=== PATIENT | female | born 1985 | race Native Hawaiian/Other Pacific Islander ===

== ENCOUNTER → 2016-10-04 | Outpatient (CLI) | payer OTHER | END | disposition home or self-care (01) | LOC: LABWHC1 12:22 | PROVIDERS: ATTEND Anesthesiology | DX: M06.9 Rheumatoid arthritis, unspecified (principal) | CPT/HCPCS: 36415; 86038; 86431 ==

== ENCOUNTER → 2016-10-04 | Outpatient (CLI) | payer OTHER ==
[2016-10-04 11:47] VITALS: BP 121/78; PULSE 71; RESP 18; TEMP 98.6
--- NOTE | 2016-10-04 12:13 | P.HPIM ---
History of Present Illness H&P Date: 10/04/16 Chief Complaint: widespread joint pain, neck pain, knee pain This is a 31-year-old patient referred by Dr. Dougherty for chronic pain in most joints, neck, and bilateral knees, with numbness/tingling to RUE. Patient has been taking medications from primary care physician including tramadol medications with some relief and also uses cannabinoid oil. She has been previously diagnosed with rheumatoid arthritis but has not been treated for this. Patient denies adverse drug effects from medications. Patient also denies new-onset weakness, bowel/bladder incontinence, or any other signs or symptoms of cauda equina syndrome. There are no signs of acute intoxication, and no indications of medication diversion or overuse. Patient notes that pain worsens significantly with standing and walking and improves with rest, ice, oils, and medication. Patient has used several types of medications for pain, including NSAIDS, OPIOIDS, TRAMADOL, and THC. Patient HAS NOT had surgery. Patient HAS had injections previously by Dr. David with 1-2 weeks' relief from each in her knees and epidural injections in her neck. Patient HAS NOT had physical therapy recently. In addition to above, 13-point review of systems is also negative for chest pain , shortness of breath, changes in vision, changes in hearing, new onset weakness , abdominal pain, diarrhea, extreme fatigue, malaise, fever, skin changes, homicidal or suicidal ideation, or bowel or bladder incontinence. 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 Neuro: CN II-XII grossly intact, muscle strength lower extremities PRESERVED Assessment: 1. rheumatoid arthritis 2. cervical spondylosis 3. chronic pain syndrome Plan: 1. Explanation: Opioid and psychological risk scores were reviewed. Diagnoses , prognoses, and multiple treatment options including but not limited to physical therapy, interventional therapies, adjuvant medical therapies, narcotic medication therapies, and surgery were discussed with the patient and all questions were answered to the patient's satisfaction. 2. Opioid agreement: no opioids prescribed today 3. Counseling: The patient was counseled extensively on SMOKING CESSATION, BODY MASS INDEX, EXERCISE. Specifically, the patient was instructed regarding the importance of smoking cessation, weight control, and exercise in the context of both chronic pain and overall health. 4. Procedures: none for now 5. Consultations: Dr. Joseph, rheumatology for RA treatment 6. Investigations: serum FARHANA, rheumatoid factor 7. Medications: none 8. Disposition: f/u as needed. Patient to see sagger soak and f/u for further evaluation after if pain does not improve. PQRS measures: 1-Patient's medications are documented in the chart. 2-Tobacco use is positive, counseling given 3-Patient has not had a pneumococcal vaccine. 4-Advanced care planning discussed, patient unable to give. 5-Opioid contract NOT signed with the patient. 6-Pain positive, follow-up visit or procedure NOT scheduled for now; patient to f/u as needed 7-Patient's blood pressure measured and documented, and WNL. 8-Patient's weight was measured, and body mass index within the normal limits 9-Patient WAS NOT identified as an unhealthy alcohol user. Past Medical History Past Medical History: Fibromyalgia, Rheumatoid Arthritis (RA) Additional Past Medical History / Comment(s): DDD, migraines History of Any Multi-Drug Resistant Organisms: None Reported Past Surgical History: Section, Cholecystectomy, Tubal Ligation Additional Past Surgical History / Comment(s): D&C, Past Anesthesia/Blood Transfusion Reactions: Blood Transfusion Reaction Additional Past Anesthesia/Blood Transfusion Reaction / Comment(s): rash with blood product Smoking Status: Current every day smoker - Past Family History Father Additional Family Medical History / Comment(s): migraines Mother Additional Family Medical History / Comment(s): scoliosis Medications and Allergies Home Medications Medication Instructions Recorded Confirmed Type Baclofen 1 tab PO BID 10/04/16 10/04/16 History Ibuprofen [Motrin] 1 tab PO BID PRN 10/04/16 10/04/16 History Rizatriptan Benzoate [Rizatriptan] 1 tab PO BID 10/04/16 10/04/16 History traMADol HCL [Ultram] 1 tab PO Q6HR PRN 10/04/16 10/04/16 History Allergies Allergy/AdvReac Type Severity Reaction Status Date / Time No Known Allergies Allergy Verified 10/04/16 11:35 Physical Exam Vitals: Vital Signs Temp Pulse Resp BP Pulse Ox 10/04/16 11:41 98.6 F 71 18 121/78 99 Intake and Output 10/03/16 10/04/16 10/04/16 22:59 06:59 14:59 Other: Weight 48.534 kg Patient Weight 10/05/16 06:59 Weight 48.534 kg
== END ==
LOC: PNWHC3 11:02
PROVIDERS: ATTEND Anesthesiology
DX: M47.812 Spondylosis without myelopathy or radiculopathy, cervical region (principal); M06.9 Rheumatoid arthritis, unspecified; Z79.891 Long term (current) use of opiate analgesic; Z79.899 Other long term (current) drug therapy
CPT/HCPCS: 99211

== ENCOUNTER 2017-05-25 13:38 | Emergency (ER) | payer MEDICARE, OTHER ==
[2017-05-25 13:50] VITALS: RESP 18
[2017-05-25] MEDS ORDERED: DEXAMETHASONE SOD PHOSPHATE 10 MG/ML 1 ML VIAL IV STA (15:57)
[2017-05-25] MEDS ORDERED: METOCLOPRAMIDE 5 MG/ML 2 ML VIAL IVP STA (15:57)
[2017-05-25] MEDS ORDERED: KETOROLAC 30 MG/ML 1 ML VIAL IVP STA (15:57)
[2017-05-25] MEDS ORDERED: SODIUM CHLORIDE 0.9% 1,000 ML IV STA (15:57)
[2017-05-25] MEDS ORDERED: diphenhydrAMINE 50 MG/ML 1 ML VIAL IVP STA (15:57)
--- NOTE | 2017-05-25 16:05 | ED ---
General Adult HPI - General Chief complaint: Headache Stated complaint: Migraine Time Seen by Provider: 05/25/17 15:46 Source: patient, RN notes reviewed Mode of arrival: ambulatory Limitations: no limitations - History of Present Illness Initial comments: Patient 31-year-old female significant past medical history for migraines, who presents emergency room today with a chief complaint of a migraine headache that began 2 weeks ago. She doesn't that she was at [facility] one week ago for this migraine headache given shots there and discharged home. She states she saw her family doctor yesterday for this headache as well. She states she's been advised to follow-up with neurology. She states that she was told about injections possible. She states she's been having some neck pain that started 2 weeks ago with this migraine. She states that it is worse on the right side and worse when she rotates her head to that direction. Patient states she's tried her Imitrex and Fioricet at home with no relief. She states that she's noticed some blurry vision out of the right eye also photosensitivity. Also admits to feeling nauseated. She states all the symptoms are consistent with migraine headaches that she's had before in the past but she does admit that since is more intense. Patient denies any new or different symptoms today for this migraine headache. Patient denies any recent fever, chills, shortness of breath, chest pain, back pain, abdominal pain, vomiting, numbness or tingling, dysuria or hematuria, constipation or diarrhea, or any other complaints. - Related Data Home Medications Medication Instructions Recorded Confirmed Butalb/Acetaminophen/Caffeine 1 cap PO Q4HR PRN 05/25/17 05/25/17 [Fioricet 50-300-40 mg Capsule] DULoxetine HCL [Cymbalta] 30 mg PO DAILY 05/25/17 05/25/17 HYDROcodone/APAP 5-325MG [[place] 1 tab PO Q6HR PRN 05/25/17 05/25/17 5-325] Mirtazapine [Remeron] 7.5 mg PO HS 05/25/17 05/25/17 Ondansetron HCl [Zofran] 4 mg PO Q6H PRN 05/25/17 05/25/17 SUMAtriptan SUCCINATE [Imitrex] 50 mg PO DAILY PRN 05/25/17 05/25/17 methylPREDNISolone [Medrol Dose See Taper PO DIRECTED 05/25/17 05/25/17 Pack] Previous Rx's Medication Instructions Recorded Cyclobenzaprine [Flexeril] 10 mg PO TID #20 tab 05/25/17 Allergies Allergy/AdvReac Type Severity Reaction Status Date / Time No Known Allergies Allergy Verified 05/25/17 15:46 Review of Systems ROS Statement: Those systems with pertinent positive or pertinent negative responses have been documented in the HPI. ROS Other: All systems not noted in ROS Statement are negative. Past Medical History Past Medical History: Fibromyalgia, Rheumatoid Arthritis (RA) Additional Past Medical History / Comment(s): DDD, migraines History of Any Multi-Drug Resistant Organisms: None Reported Past Surgical History: Section, Cholecystectomy, Tubal Ligation Additional Past Surgical History / Comment(s): D&C, Past Anesthesia/Blood Transfusion Reactions: Blood Transfusion Reaction Additional Past Anesthesia/Blood Transfusion Reaction / Comment(s): rash with blood product Past Psychological History: No Psychological Hx Reported Smoking Status: Current every day smoker Past Alcohol Use History: None Reported Past Drug Use History: None Reported - Past Family History Father Additional Family Medical History / Comment(s): migraines Mother Additional Family Medical History / Comment(s): scoliosis General Exam - General Exam Comments Initial Comments: General: The patient is awake and alert, in no distress, and does not appear acutely ill. Eye: Pupils are equal, round and reactive to light, extra-ocular movements are intact. No nystagmus. There is normal conjunctiva bilaterally. No signs of icterus. Ears, nose, mouth and throat: There are moist mucous membranes and no oral lesions. Neck: The neck is supple, there is no tenderness or JVD. Cardiovascular: There is a regular rate and rhythm. No murmur, rub or gallop is appreciated. Respiratory: Lungs are clear to auscultation, respirations are non-labored, breath sounds are equal. No wheezes, stridor, rales, or rhonchi. Musculoskeletal: Normal ROM, no tenderness. Strength 5/5. Sensation intact. Pulses equal bilaterally 2+. Neurological: A&O x 3. CN II-XII intact, There are no obvious motor or sensory deficits. Coordination appears grossly intact. Speech is normal. Skin: Skin is warm and dry and no rashes or lesions are noted. Psychiatric: Cooperative, appropriate mood & affect, normal judgment. Limitations: no limitations Course Vital Signs 05/25/17 05/25/17 13:47 16:23 Temperature 97.9 F Pulse Rate 88 69 Respiratory 18 18 Rate Blood Pressure 150/95 124/67 O2 Sat by Pulse 100 99 Oximetry Medical Decision Making - Medical Decision Making Patient reexamined at this time shows no signs of distress. She states she's feeling much better. She was given doses of Reglan, Benadryl, Toradol, dexamethasone. Emergency room along with a liter bolus. Patient does admit to improvement feeling better will be discharged home. Patient also has symptoms of torticollis to the right side of the neck. Will be given a muscle laxer go home with. Patient is advised follow-up the family doctor return here to the emergency room symptoms increase worsen. Disposition Clinical Impression: Migraine Disposition: HOME SELF-CARE Condition: Good Instructions: Migraine Headache (ED) Additional Instructions: Please use medication as discussed. Please follow-up with family doctor in the next 2 days of symptoms have not improved. Please return to emergency room if the symptoms increase or worsen or for any other concerns. Prescriptions: Cyclobenzaprine [Flexeril] 10 mg PO TID #20 tab Referrals: Foster Dougherty MD [Primary Care Provider] - 1-2 days Time of Disposition: 17:23
[2017-05-25 17:38] VITALS: BP 115/55; PULSE 66; TEMP 98.3
== END 2017-05-25 17:36 | disposition home or self-care (01) ==
LOC: EC 13:38
DX: G43.909 Migraine, unspecified, not intractable, without status migrainosus (principal); M54.2 Cervicalgia; M06.9 Rheumatoid arthritis, unspecified; F17.200 Nicotine dependence, unspecified, uncomplicated; Z79.52 Long term (current) use of systemic steroids; Z79.899 Other long term (current) drug therapy; Z87.39 Personal history of other diseases of the musculoskeletal system and connective tissue; Z82.0 Family history of epilepsy and other diseases of the nervous system
CPT/HCPCS: 99283; 96374; 96375 ×3; 96361; J1200; J1100; J2765; J1885

== ENCOUNTER → 2017-09-07 | Outpatient (CLI) | payer MEDICARE, OTHER ==
--- NOTE | 2017-09-09 08:15 | MR ---
EXAMINATION TYPE: MR lumbar spine wo con DATE OF EXAM: 09/07/2017 COMPARISON: NONE HISTORY: Low back pain TECHNIQUE: T1 and T2 axial and sagittal images of the lumbar spine are submitted. FINDINGS: There is no abnormal signal seen within the visualized spinal cord or paraspinal soft tissu es. There is a subtle curvature of the spine. At L1-2 there is no degenerative disc disease, disc herniation, canal stenosis, or foraminal encroach ment. At L2-3 there is no degenerative disc disease, disc herniation, canal stenosis, or foraminal encroach ment At L3-4 there is no degenerative disc disease, disc herniation, canal stenosis, or foraminal encroach ment At L4-5 there is no degenerative disc disease, disc herniation, canal stenosis, or foraminal encroach ment At L5-S1 there is disc desiccation and annular tear with broad-based central disc protrusion and mild effacement of thecal sac. No canal stenosis or foraminal encroachment. IMPRESSION: 1. At L5-S1 there is disc desiccation and annular tear with broad-based central disc protrusion and m ild effacement of thecal sac. No canal stenosis or foraminal encroachment.
== END | disposition home or self-care (01) ==
LOC: RADMRIMAIN 19:53
PROVIDERS: ATTEND Nurse Practitioner
DX: M51.27 Other intervertebral disc displacement, lumbosacral region (principal)
CPT/HCPCS: 72148

== ENCOUNTER 2019-02-07 13:55 | Emergency (ER) | payer MEDICARE, OTHER ==
[2019-02-07 14:01] VITALS: TEMP 97.9
[2019-02-07] MEDS ORDERED: KETOROLAC 30 MG/ML 1 ML VIAL IVP STA (14:19)
--- NOTE | 2019-02-07 14:24 | ED ---
General Adult HPI - General Chief complaint: Chest Pain Stated complaint: Chest/neck/shoulder pain Time Seen by Provider: 02/07/19 14:09 Source: patient, RN notes reviewed Mode of arrival: ambulatory Limitations: no limitations - History of Present Illness Initial comments: 33-year-old female with a past medical history of degenerative disc disease, fib romyalgia, migraines presents to the emergency department for multiple complaints. Patient's main complaint today is chest pain. Patient states that for the past 2 weeks she has had a squeezing chest pain. States this comes and goes. States this is worsened by laying flat and sitting. Denies is worsening with exertion. Denies any diaphoresis or nausea associated. Patient does admit that taking a deep breath makes this worse. Patient denies she has a stating that she has had a tubal ligation in the past. No abdominal pain. Patient also complaining of right-sided neck pain. This is being managed outpatient by her primary care provider and patient has been doing physical th erapy for this. States neck pain worsens when she turns her head to the right. States she is here more for her chest pain rather than this neck pain as this is already being managed.Patient has no other complaints at this time including shortness of breath, chest pain, abdominal pain, nausea or vomiting, headache, or visual changes. - Related Data Home Medications Medication Instructions Recorded Confirmed Butalb/Acetaminophen/Caffeine 1 cap PO Q4HR PRN 05/25/17 05/25/17 [Fioricet 50-300-40 mg Capsule] DULoxetine HCL [Cymbalta] 30 mg PO DAILY 05/25/17 05/25/17 HYDROcodone/APAP 5-325MG [[place] 1 tab PO Q6HR PRN 05/25/17 05/25/17 5-325] Mirtazapine [Remeron] 7.5 mg PO HS 05/25/17 05/25/17 Ondansetron HCl [Zofran] 4 mg PO Q6H PRN 05/25/17 05/25/17 SUMAtriptan SUCCINATE [Imitrex] 50 mg PO DAILY PRN 05/25/17 05/25/17 methylPREDNISolone [Medrol Dose See Taper PO DIRECTED 05/25/17 05/25/17 Pack] Previous Rx's Medication Instructions Recorded Cyclobenzaprine [Flexeril] 10 mg PO TID #20 tab 05/25/17 Allergies Allergy/AdvReac Type Severity Reaction Status Date / Time No Known Allergies Allergy Verified 02/07/19 13:57 Review of Systems ROS Statement: Those systems with pertinent positive or pertinent negative responses have been documented in the HPI. ROS Other: All systems not noted in ROS Statement are negative. Past Medical History Past Medical History: Fibromyalgia, Rheumatoid Arthritis (RA) Additional Past Medical History / Comment(s): DDD, migraines History of Any Multi-Drug Resistant Organisms: None Reported Past Surgical History: Section, Cholecystectomy, Tubal Ligation Additional Past Surgical History / Comment(s): D&C, Past Anesthesia/Blood Transfusion Reactions: Blood Transfusion Reaction Additional Past Anesthesia/Blood Transfusion Reaction / Comment(s): rash with blood product Past Psychological History: No Psychological Hx Reported Smoking Status: Current every day smoker Past Alcohol Use History: Occasional Past Drug Use History: None Reported - Past Family History Father Additional Family Medical History / Comment(s): migraines Mother Additional Family Medical History / Comment(s): scoliosis General Exam Limitations: no limitations General appearance: alert, in no apparent distress Head exam: Present: atraumatic, normocephalic, normal inspection Eye exam: Present: normal appearance, PERRL, EOMI. Absent: scleral icterus, conjunctival injection, periorbital swelling ENT exam: Present: normal exam, mucous membranes moist Neck exam: Present: normal inspection, tenderness (Tenderness noted to the cervical trapezius bilaterally. Skin exam is normal.), full ROM. Absent: meningismus, lymphadenopathy Respiratory exam: Present: normal lung sounds bilaterally. Absent: respiratory distress, wheezes, rales, rhonchi, stridor Cardiovascular Exam: Present: regular rate, normal rhythm, normal heart sounds. Absent: systolic murmur, diastolic murmur, rubs, gallop, clicks Neurological exam: Present: alert Psychiatric exam: Present: normal affect, normal mood Course Vital Signs 02/07/19 02/07/19 13:57 15:01 Temperature 97.9 F Pulse Rate 65 Pulse Rate [ 65 Equipment Oiler ] Respiratory 18 Rate Blood Pressure 132/73 O2 Sat by Pulse 100 Oximetry EKG Findings - EKG Comments: EKG Findings:: Sinus tachycardia, ventricular rate 101, IN interval 164, QTc 435 Medical Decision Making - Medical Decision Making Vitals are stable. EKG shows minimal sinus tachycardia with a ventricular rate of 101, no ST elevation or depression. This was reviewed by Dr. Lamb as well. CBC CMP unremarkable. D-dimer is completely negative. TSH is normal. Troponin is negative. Chest squeezing is atypical in nature, not worsening with exertion, nonradiating. One troponin was obtained as symptoms have been going on for 2 weeks and if this was related to ACS we would expect this to be elevated. Her again symptoms are atypical and this is not suspected. Chest x- ray is unremarkable. At this time discussed follow-up with primary care for possible cardiology referral. Patient also has had neck pain for months. This worsens with movement and does appear muscular skeletal in nature. This is not correlated with the chest pain and does not occur at the same time. She will follow up with orthopedics for this and return if she has worsening symptoms. - Lab Data Result diagrams: 02/07/19 14:24 02/07/19 14:24 Lab Results 02/07/19 02/07/19 02/07/19 Range/Units 14:24 14:24 14:24 WBC 5.8 (3.8-10.6) k/uL RBC 4.77 (3.80-5.40) m/uL Hgb 14.9 (11.4-16.0) gm/dL Hct 45.8 (34.0-46.0) % MCV 96.0 (80.0-100.0) fL MCH 31.3 (25.0-35.0) pg MCHC 32.6 (31.0-37.0) g/dL RDW 11.8 (11.5-15.5) % Plt Count 271 (150-450) k/uL Neutrophils % 64 % Lymphocytes % 25 % Monocytes % 5 % Eosinophils % 3 % Basophils % 1 % Neutrophils # 3.7 (1.3-7.7) k/uL Lymphocytes # 1.5 (1.0-4.8) k/uL Monocytes # 0.3 (0-1.0) k/uL Eosinophils # 0.2 (0-0.7) k/uL Basophils # 0.1 (0-0.2) k/uL PT 10.2 (9.0-12.0) sec INR 0.9 (<1.2) APTT 26.0 (22.0-30.0) sec D-Dimer <0.17 (<0.60) mg/L FEU Sodium 139 (137-145) mmol/L Potassium 3.9 (3.5-5.1) mmol/L Chloride 104 (98-107) mmol/L Carbon Dioxide 26 (22-30) mmol/L Anion Gap 9 mmol/L BUN 6 L (7-17) mg/dL Creatinine 0.67 (0.52-1.04) mg/dL Est GFR (CKD-EPI)AfAm >90 (>60 ml/min/1.73 sqM) Est GFR (CKD-EPI)NonAf >90 (>60 ml/min/1.73 sqM) Glucose 89 (74-99) mg/dL Calcium 10.0 (8.4-10.2) mg/dL Magnesium 1.9 (1.6-2.3) mg/dL Total Bilirubin 0.5 (0.2-1.3) mg/dL AST 25 (14-36) U/L ALT 33 (9-52) U/L Alkaline Phosphatase 59 (38-126) U/L Troponin I (0.000-0.034) ng/mL Total Protein 7.3 (6.3-8.2) g/dL Albumin 4.6 (3.5-5.0) g/dL TSH 1.020 (0.465-4.680) mIU/L 02/07/19 Range/Units 14:24 WBC (3.8-10.6) k/uL RBC (3.80-5.40) m/uL Hgb (11.4-16.0) gm/dL Hct (34.0-46.0) % MCV (80.0-100.0) fL MCH (25.0-35.0) pg MCHC (31.0-37.0) g/dL RDW (11.5-15.5) % Plt Count (150-450) k/uL Neutrophils % % Lymphocytes % % Monocytes % % Eosinophils % % Basophils % % Neutrophils # (1.3-7.7) k/uL Lymphocytes # (1.0-4.8) k/uL Monocytes # (0-1.0) k/uL Eosinophils # (0-0.7) k/uL Basophils # (0-0.2) k/uL PT (9.0-12.0) sec INR (<1.2) APTT (22.0-30.0) sec D-Dimer (<0.60) mg/L FEU Sodium (137-145) mmol/L Potassium (3.5-5.1) mmol/L Chloride (98-107) mmol/L Carbon Dioxide (22-30) mmol/L Anion Gap mmol/L BUN (7-17) mg/dL Creatinine (0.52-1.04) mg/dL Est GFR (CKD-EPI)AfAm (>60 ml/min/1.73 sqM) Est GFR (CKD-EPI)NonAf (>60 ml/min/1.73 sqM) Glucose (74-99) mg/dL Calcium (8.4-10.2) mg/dL Magnesium (1.6-2.3) mg/dL Total Bilirubin (0.2-1.3) mg/dL AST (14-36) U/L ALT (9-52) U/L Alkaline Phosphatase (38-126) U/L Troponin I <0.012 (0.000-0.034) ng/mL Total Protein (6.3-8.2) g/dL Albumin (3.5-5.0) g/dL TSH (0.465-4.680) mIU/L Disposition Clinical Impression: Atypical chest pain Disposition: HOME SELF-CARE Condition: Good Instructions (If sedation given, give patient instructions): Chest Pain (ED) Additional Instructions: Please follow up with primary care in 1-2 days for possible cardiology referral. Follow-up with orthopedics for this ongoing neck pain. Return to the emergency department if you have any worsening symptoms. Is patient prescribed a controlled substance at d/c from ED?: No Referrals: Hayley Sol NPC [Primary Care Provider] - 1-2 days Rudi Simmons DO [Medical Doctor] - 1-2 days Time of Disposition: 15:40
[2019-02-07 14:37] LABS: Basophils # (A) 0.1 k/uL (0-0.2); Basophils % (A) 1 %; Eosinophils # (A) 0.2 k/uL (0-0.7); Eosinophils % (A) 3 %; HCT 45.8 % (34.0-46.0); HGB 14.9 gm/dL (11.4-16.0); Lymphocytes # (A) 1.5 k/uL (1.0-4.8); Lymphocytes % (A) 25 %; MCH 31.3 pg (25.0-35.0); MCHC 32.6 g/dL (31.0-37.0); Mean Platelet Volume 6.6; Monocytes # (A) 0.3 k/uL (0-1.0); Monocytes % (A) 5 %; Neutrophils # (A) 3.7 k/uL (1.3-7.7); Neutrophils % (A) 64 %; Platelet Count 271 k/uL (150-450); RBC 4.77 m/uL (3.80-5.40); RDW 11.8 % (11.5-15.5); WBC 5.8 k/uL (3.8-10.6)
[2019-02-07 14:47] LABS: ALT 33 U/L (9-52); AST 25 U/L (14-36); African American GFR (CKD) >90 (>60 ml/min/1.73 sqM); Albumin 4.6 g/dL (3.5-5.0); Alkaline Phosphatase 59 U/L (38-126); Anion Gap 9 mmol/L; Blood Urea Nitrogen 6 mg/dL (7-17); Carbon Dioxide 26 mmol/L (22-30); Chloride 104 mmol/L (98-107); Glucose 89 mg/dL (74-99); Magnesium 1.9 mg/dL (1.6-2.3); Potassium 3.9 mmol/L (3.5-5.1); Sodium 139 mmol/L (137-145); Total Bilirubin 0.5 mg/dL (0.2-1.3); Total Protein 7.3 g/dL (6.3-8.2)
[2019-02-07] MEDS ORDERED: SODIUM CHLORIDE 0.9% 1,000 ML IV STA (14:50)
[2019-02-07 15:00] LABS: D-Dimer <0.17 mg/L FEU (<0.60); INR 0.9 (<1.2); Prothrombin Time 10.2 sec (9.0-12.0)
--- NOTE | 2019-02-07 15:05 | XR ---
EXAMINATION TYPE: XR chest 2V DATE OF EXAM: 02/07/2019 COMPARISON: 01/15/2015 HISTORY: Chest pressure for 2 weeks dysrhythmia TECHNIQUE: Frontal and lateral views of the chest are obtained. FINDINGS: There is no focal air space opacity, pleural effusion, or pneumothorax seen. The cardiac silhouette size is within normal limits. The osseous structures are intact. There is a very mild de xtro scoliotic curvature of the lower thoracic spine. Cholecystectomy clips are seen. IMPRESSION: No acute cardiopulmonary process.
[2019-02-07 15:57] VITALS: BP 132/76; PULSE 87; RESP 16
== END 2019-02-07 15:56 | disposition home or self-care (01) ==
LOC: EC 13:55
DX: R07.89 Other chest pain (principal); M54.2 Cervicalgia; R00.0 Tachycardia, unspecified; M79.7 Fibromyalgia; M06.9 Rheumatoid arthritis, unspecified; F17.200 Nicotine dependence, unspecified, uncomplicated; Z79.52 Long term (current) use of systemic steroids; Z79.899 Other long term (current) drug therapy; Z98.51 Tubal ligation status; Z82.69 Family history of other diseases of the musculoskeletal system and connective tissue
CPT/HCPCS: 99284; 96374; 96361; 36415; 93005; 85379; 80053; 83735; 84443; 84484; 85025; 85610; 85730; 71046; J1885

== ENCOUNTER 2021-01-18 12:43 | Observation (INO) | payer MEDICARE, OTHER ==
--- NOTE | 2021-01-18 13:36 | XR ---
EXAMINATION TYPE: XR KUB DATE OF EXAM: 01/18/2021 Comparison: Clinical History: 35-year-old female lower abdominal pain Findings: Lung bases are clear. Cholecystectomy clips. No evidence for free intraperitoneal air. No dilated small bowel or air-fluid levels. Moderate stool within the pelvis. Incidentally, a dropped surgical clip in the left side of the pelvis. No suspicious calcifications se en. Impression: Moderate stool in the pelvis. No evidence for free air or bowel obstruction. Status post cholecystect chandrika.
[2021-01-18 13:43] LABS: Appearance,Urine Clear (Clear); Basophils % (A) 1 %; Bilirubin,Urine Negative (Negative); Blood,Urine Negative (Negative); Color,Urine Yellow; Eosinophils # (A) 0.1 k/uL (0-0.7); Eosinophils % (A) 2 %; Glucose,Urine (UA) Negative (Negative); HCT 42.8 % (34.0-46.0); HGB 14.3 gm/dL (11.4-16.0); Ketones,Urine Trace (Negative); Leukocyte Esterase,Urine Negative (Negative); Lymphocytes # (A) 0.9 k/uL (1.0-4.8); Lymphocytes % (A) 13 %; MCH 32.5 pg (25.0-35.0); MCHC 33.3 g/dL (31.0-37.0); MCV 97.5 fL (80.0-100.0); Mean Platelet Volume 7.7; Monocytes # (A) 0.3 k/uL (0-1.0); Monocytes % (A) 4 %; Neutrophils # (A) 5.6 k/uL (1.3-7.7); Neutrophils % (A) 80 %; Nitrite,Urine Negative (Negative); PH, Urine 6.5 (5.0-8.0); Platelet Count 209 k/uL (150-450); Protein,Urine Trace (Negative); RBC 4.39 m/uL (3.80-5.40); RDW 11.6 % (11.5-15.5); Specific Gravity,Urine 1.035 (1.001-1.035)
[2021-01-18 13:55] LABS: ALT 11 U/L (4-34); AST 18 U/L (14-36); African American GFR (CKD) >90 (>60 ml/min/1.73 sqM); Albumin 3.9 g/dL (3.5-5.0); Alkaline Phosphatase 74 U/L (38-126); Amylase 137 U/L (30-110); Anion Gap 6 mmol/L; Blood Urea Nitrogen 18 mg/dL (7-17); Calcium 9.5 mg/dL (8.4-10.2); Carbon Dioxide 26 mmol/L (22-30); Chloride 105 mmol/L (98-107); Glucose 109 mg/dL (74-99); Lipase 841 U/L (23-300); Non-African American GFR(CKD) >90 (>60 ml/min/1.73 sqM); Sodium 137 mmol/L (137-145); Total Bilirubin 0.2 mg/dL (0.2-1.3); Total Protein 6.7 g/dL (6.3-8.2)
[2021-01-18] MEDS ORDERED: SODIUM CHLORIDE 0.9% 1,000 ML IV STA (14:26)
[2021-01-18] MEDS ORDERED: HYDROmorphone 0.5 MG/0.5 ML SYRINGE IVP STA ×2 (14:26→16:04)
--- NOTE | 2021-01-18 14:32 | ED ---
Abdominal Pain HPI - General Chief Complaint: Abdominal Pain Stated Complaint: abd pain Time Seen by Provider: 01/18/21 14:16 Source: patient, RN notes reviewed Mode of arrival: ambulatory Limitations: no limitations - History of Present Illness Initial Comments: Patient's 35-year-old female presents to ED for abdominal pain. Patient states that had similar episode 3 weeks prior settled down zone. Patient states that the pain started this past , with 10 out of 10 pain epigastric and right flank. Patient denies daily alcohol use. Patient denies any other symptoms of cough congestion nausea vomiting fever or chills. Patient reports no changes in bowel movements or urination, no change in appetite or energy level. Patient does report history of untreated hyperthyroidism. - Related Data Home Medications Medication Instructions Recorded Confirmed Butalb/Acetaminophen/Caffeine 1 cap PO Q4HR PRN 05/25/17 05/25/17 [Fioricet 50-300-40 mg Capsule] DULoxetine HCL [Cymbalta] 30 mg PO DAILY 05/25/17 05/25/17 HYDROcodone/APAP 5-325MG [Deport 1 tab PO Q6HR PRN 05/25/17 05/25/17 5-325] Mirtazapine [Remeron] 7.5 mg PO HS 05/25/17 05/25/17 Ondansetron HCl [Zofran] 4 mg PO Q6H PRN 05/25/17 05/25/17 SUMAtriptan succinate [Imitrex] 50 mg PO DAILY PRN 05/25/17 05/25/17 methylPREDNISolone [Medrol Dose See Taper PO DIRECTED 05/25/17 05/25/17 Pack] Previous Rx's Medication Instructions Recorded Cyclobenzaprine [Flexeril] 10 mg PO TID #20 tab 05/25/17 Allergies Allergy/AdvReac Type Severity Reaction Status Date / Time baclofen Allergy Rash/Hives Verified 01/18/21 13:08 Review of Systems ROS Statement: Those systems with pertinent positive or pertinent negative responses have been documented in the HPI. ROS Other: All systems not noted in ROS Statement are negative. Past Medical History Past Medical History: Fibromyalgia, Rheumatoid Arthritis (RA) Additional Past Medical History / Comment(s): DDD, migraines History of Any Multi-Drug Resistant Organisms: None Reported Past Surgical History: Section, Cholecystectomy, Tubal Ligation Additional Past Surgical History / Comment(s): D&C, Past Anesthesia/Blood Transfusion Reactions: Blood Transfusion Reaction Additional Past Anesthesia/Blood Transfusion Reaction / Comment(s): rash with blood product Past Psychological History: No Psychological Hx Reported Smoking Status: Current every day smoker Past Alcohol Use History: Occasional Past Drug Use History: None Reported - Past Family History Father Additional Family Medical History / Comment(s): migraines Mother Additional Family Medical History / Comment(s): scoliosis General Exam Limitations: no limitations General appearance: alert, in no apparent distress Respiratory exam: Present: normal lung sounds bilaterally. Absent: respiratory distress, wheezes, rales, rhonchi, stridor Cardiovascular Exam: Present: regular rate, normal rhythm, normal heart sounds. Absent: systolic murmur, diastolic murmur, rubs, gallop, clicks GI/Abdominal exam: Present: soft, tenderness, guarding, rebound, normal bowel sounds Back exam: Present: CVA tenderness (L) Neurological exam: Present: alert, oriented X3 Skin exam: Present: warm, dry, intact, normal color. Absent: rash Course Vital Signs 01/18/21 13:06 Temperature 98.4 F Pulse Rate 92 Respiratory 16 Rate Blood Pressure 115/64 O2 Sat by Pulse 100 Oximetry Medical Decision Making - Medical Decision Making Patient has acute pancreatitis CT is unremarkable. Patient will be started on IV fluid hydration, patient started on pain control case discussed with on-call physician Dr. Severino - Lab Data Result diagrams: 01/18/21 13:24 01/18/21 13:24 Lab Results 01/18/21 01/18/21 01/18/21 Range/Units 13:24 13:24 13:24 WBC 7.0 (3.8-10.6) k/uL RBC 4.39 (3.80-5.40) m/uL Hgb 14.3 (11.4-16.0) gm/dL Hct 42.8 (34.0-46.0) % MCV 97.5 (80.0-100.0) fL MCH 32.5 (25.0-35.0) pg MCHC 33.3 (31.0-37.0) g/dL RDW 11.6 (11.5-15.5) % Plt Count 209 (150-450) k/uL MPV 7.7 Neutrophils % 80 % Lymphocytes % 13 % Monocytes % 4 % Eosinophils % 2 % Basophils % 1 % Neutrophils # 5.6 (1.3-7.7) k/uL Lymphocytes # 0.9 L (1.0-4.8) k/uL Monocytes # 0.3 (0-1.0) k/uL Eosinophils # 0.1 (0-0.7) k/uL Basophils # 0.0 (0-0.2) k/uL Sodium 137 (137-145) mmol/L Potassium 4.0 (3.5-5.1) mmol/L Chloride 105 (98-107) mmol/L Carbon Dioxide 26 (22-30) mmol/L Anion Gap 6 mmol/L BUN 18 H (7-17) mg/dL Creatinine 0.72 (0.52-1.04) mg/dL Est GFR (CKD-EPI)AfAm >90 (>60 ml/min/1.73 sqM) Est GFR (CKD-EPI)NonAf >90 (>60 ml/min/1.73 sqM) Glucose 109 H (74-99) mg/dL Calcium 9.5 (8.4-10.2) mg/dL Total Bilirubin 0.2 (0.2-1.3) mg/dL AST 18 (14-36) U/L ALT 11 (4-34) U/L Alkaline Phosphatase 74 (38-126) U/L Total Protein 6.7 (6.3-8.2) g/dL Albumin 3.9 (3.5-5.0) g/dL Amylase 137 H (30-110) U/L Lipase 841 H (23-300) U/L Urine Color Yellow Urine Appearance Clear (Clear) Urine pH 6.5 (5.0-8.0) Ur Specific Wh[place]ide 1.035 (1.001-1.035) Urine Protein Trace H (Negative) Urine Glucose (UA) Negative (Negative) Urine Ketones Trace H (Negative) Urine Blood Negative (Negative) Urine Nitrite Negative (Negative) Urine Bilirubin Negative (Negative) Urine Urobilinogen 2.0 (<2.0) mg/dL Ur Leukocyte Esterase Negative (Negative) Disposition Clinical Impression: Acute pancreatitis Disposition: ADMITTED IP TO [facility] Condition: Fair Referrals: None,Stated [Primary Care Provider] - 1-2 days
[2021-01-18] MEDS ORDERED: ONDANSETRON 4 MG/2 ML VIAL IVP STA (14:56)
--- NOTE | 2021-01-18 15:36 | CT ---
EXAMINATION TYPE: CT abdomen pelvis w con DATE OF EXAM: 01/18/2021 HISTORY: generalized pain, nausea CT DLP: 400.1mGycm Automated Exposure Control for Dose Reduction was Utilized. CONTRAST: CT scan of the abdomen and pelvis is performed without oral but with IV Contrast, patient injected wi th 100 mL of Isovue 300. COMPARISON: CT abdomen and pelvis September 25, 2011 FINDINGS: LUNG BASES: New Anterior medial right basilar linear scarring. Partial visualization of new bilateral breast implants. LIVER/GB: Interval cholecystectomy with new surgical clips. Increased biliary prominence presumed pro duct of interval cholecystectomy. No abnormal dilatation. PANCREAS: No significant abnormality is seen. SPLEEN: No significant abnormality is seen. ADRENALS: No significant abnormality is seen. KIDNEYS: Symmetric cortical medullary uptake and excretion without hydronephrosis seen bilaterally. BOWEL: Suboptimal evaluation bowel without enteric contrast and patient having little intra-abdominal fat. No suspicious small or large bowel dilatation. Slightly low-lying cecum into the right pelvis. Small bowel feces sign terminal ileum consistent with delayed passage of ingested material to colonic level. Surgical clip in the anterior left pelvis coronal image 25 level of sigmoid colon. There are suspected sigmoid colonic diverticula. No convincing CT evidence for acute diverticulitis. Gas promin ent rectum. UTERUS/ADNEXA: Anteverted uterus. Ovaries symmetric and normal in size. Left ovary has a 1.7 cm round low dense lesion favoring prominent follicle. Prominent draining left ovarian veins axial image 64 a re noted. LYMPH NODES: No greater than 1cm abdominal or pelvic lymph nodes are appreciated. OSSEOUS STRUCTURES: No significant abnormality is seen. OTHER: No significant additional abnormality is seen. IMPRESSION: Overall nonspecific but favor nonobstructive bowel gas pattern. Distal colonic diverticul a suspected. No CT evidence for acute diverticulitis. Possible left-sided pelvic congestion syndrome. Correlate clinically.
[2021-01-18] MEDS ORDERED: KETOROLAC 15 MG/ML 1 ML VIAL IVP STA (16:05)
[2021-01-18] MEDS ORDERED: HYDROmorphone 0.5 MG/0.5 ML SYRINGE IVP PRN (16:09)
[2021-01-18] MEDS ORDERED: NALOXONE 0.4 MG/ML 1 ML VIAL IV PRN (16:09)
[2021-01-18] MEDS: SODIUM CHLORIDE 0.9% 1,000 ML IV SCH ×2 (16:33→23:55)
--- NOTE | 2021-01-18 17:11 | P.HPIM ---
History of Present Illness H&P Date: 01/18/21 This is a 35-year-old female with past medical history significant for fibromyalgia with chronic pain that presented to the emergency room with generalized body aches and pain. Patient was very nonspecific regarding her pain and then when I asked her to take one area that's most painful she picked her stomach. Patient said that she's been having intermittent generalized pain throughout her stomach and was recently referred to a pain management physician in [place] even though she lives in [place]. She was evaluated in the ER and a computed tomography scan of the abdomen and pelvis showed no acute findings. Lipase level was elevated but less then triple the upper range of normal. Rocio ent will be placed in observation. Review of Systems Review of system: 14 points review of systems were obtained and were negative except to what were mentioned in the HPI. Past Medical History Past Medical History: Fibromyalgia, Rheumatoid Arthritis (RA) Additional Past Medical History / Comment(s): DDD, migraines History of Any Multi-Drug Resistant Organisms: None Reported Past Surgical History: Section, Cholecystectomy, Tubal Ligation Additional Past Surgical History / Comment(s): D&C, Past Anesthesia/Blood Transfusion Reactions: Blood Transfusion Reaction Additional Past Anesthesia/Blood Transfusion Reaction / Comment(s): rash with blood product Past Psychological History: No Psychological Hx Reported Smoking Status: Current every day smoker Past Alcohol Use History: Occasional Past Drug Use History: None Reported - Past Family History Father Additional Family Medical History / Comment(s): migraines Mother Additional Family Medical History / Comment(s): scoliosis Medications and Allergies Home Medications Medication Instructions Recorded Confirmed Type Dextroamphetamine/Amphetamine 20 mg PO BID 01/18/21 01/18/21 History [Adderall] Ergocalciferol [Vitamin D2 (1250 1,250 mcg PO TU 01/18/21 01/18/21 History Mcg = 84489 Iu)] Horizant 600mg 1 tab PO DAILY@1700 01/18/21 01/18/21 History Rizatriptan Odt [Maxalt Patient Accounts Coordinator] 10 mg PO DAILY PRN 01/18/21 01/18/21 History medroxyPROGESTERone [Depo-Provera] 150 mg IM Q84D 01/18/21 01/18/21 History Allergies Allergy/AdvReac Type Severity Reaction Status Date / Time baclofen Allergy Rash/Hives Verified 01/18/21 16:38 Physical Exam Vitals: Vital Signs Temp Pulse Resp BP Pulse Ox 01/18/21 16:39 98.3 F 93 18 126/80 100 01/18/21 13:06 98.4 F 92 16 115/64 100 Intake and Output 01/18/21 01/18/21 01/18/21 06:59 14:59 22:59 Other: Weight 44.906 kg General: The patient is awake and alert, in no distress Eye: there is normal conjunctiva bilaterally. Neck: The neck is supple, there is no JVD. Cardiovascular: Normal S1-S2, no S3-S4, no murmurs. Respiratory: Lungs clear to auscultation bilaterally Gastrointestinal: Abdomen is soft, nontender Musculoskeletal: There is no pedal edema. Neurological:. Speech is normal. Skin: Skin is warm and dry Results CBC & Chem 7: 01/18/21 13:24 01/18/21 13:24 Labs: Abnormal Lab Results - Last 24 Hours (Table) 01/18/21 01/18/21 01/18/21 Range/Units 13:24 13:24 13:24 Lymphocytes # 0.9 L (1.0-4.8) k/uL BUN 18 H (7-17) mg/dL Glucose 109 H (74-99) mg/dL Amylase 137 H (30-110) U/L Lipase 841 H (23-300) U/L Urine Protein Trace H (Negative) Urine Ketones Trace H (Negative) Assessment and Plan Assessment: 1. Mild pancreatitis, patient denies alcohol abuse. She had a history of cystectomy. Lipase level is less than drip at the upper range of normal. I would order triglyceride level. Continue IV fluid hydration and liquid diet. The last diet as tolerated. Repeat lipase in the morning. 2. History of chronic pain syndrome/fibromyalgia I would avoid IV pain medication as patient presented with pain medication seeking behavior. She is on Ritalin as well. Continue supportive care otherwise.
[2021-01-18] MEDS: NON FORMULARY DRUG (Dextroamphetamine/Amphetamine [Adderall] 20 MG Tablet) PO SCH (20:36)
[2021-01-18] MEDS: HYDROcodone/APAP 5-325MG 1 EACH TAB PO PRN (22:03)
[2021-01-19] MEDS: KETOROLAC 15 MG/ML 1 ML VIAL IVP PRN ×2 (01:28→08:24)
[2021-01-19 04:06] VITALS: PULSE 74
[2021-01-19] MEDS: HYDROcodone/APAP 5-325MG 1 EACH TAB PO PRN ×3 (04:07→12:01)
[2021-01-19] MEDS: ONDANSETRON 4 MG/2 ML VIAL IVP PRN ×2 (04:09→12:00)
[2021-01-19 08:06] VITALS: BP 99/65; RESP 19; TEMP 98.2
[2021-01-19] MEDS: SODIUM CHLORIDE 0.9% 1,000 ML IV SCH (08:25)
[2021-01-19] MEDS ORDERED: PANTOPRAZOLE 40 MG/10 ML VIAL IV SCH (09:00)
--- NOTE | 2021-01-19 09:26 | P.DS ---
Providers Date of admission: 01/18/21 16:13 Expected date of discharge: 01/19/21 Attending physician: Kaiden Severino Primary care physician: Stated None Hospital Course: This is a 35-year-old female with past medical history significant for fibromyalgia with chronic pain that presented to the emergency room with generalized body aches and pain. Patient was very nonspecific regarding her pain and then when I asked her to take one area that's most painful she picked her stomach. Patient said that she's been having intermittent generalized pain throughout her stomach and was recently referred to a pain management physician in [place] even though she lives in [place]. She was evaluated in the ER and a computed tomography scan of the abdomen and pelvis showed no acute findings. Lipase level was elevated but less then triple the upper range of normal. Patient will be placed in observation. 1. Mild pancreatitis, patient denies alcohol abuse. She had a history of cholecystectomy. Lipase level i trending down. triglyceride level normal. 2. History of chronic pain syndrome/fibromyalgia Patient's overall condition improved significantly throughout her hospital stay. She was treated with supportive care. On the day of discharge she was able to tolerate regular diet with no difficulty. She denies any abdominal pain. General: The patient is awake and alert, in no distress Eye: there is normal conjunctiva bilaterally. Neck: The neck is supple, there is no JVD. Cardiovascular: Normal S1-S2, no S3-S4, no murmurs. Respiratory: Lungs clear to auscultation bilaterally Gastrointestinal: Abdomen is soft, nontender Musculoskeletal: There is no pedal edema. Neurological:. Speech is normal. Skin: Skin is warm and dry Patient Condition at Discharge: Fair Plan - Discharge Summary New Discharge Prescriptions: Continue RX: medroxyPROGESTERone [Depo-Provera] 150 mg IM Q84D RX: Ergocalciferol [Vitamin D2 (1250 Mcg = 57183 Iu)] 1,250 mcg PO TU RX: Rizatriptan Odt [Maxalt CHIEF OF SERVICE] 10 mg PO DAILY PRN PRN Reason: Migraine Headache Horizant 600mg 1 tab PO DAILY@1700 RX: Dextroamphetamine/Amphetamine [Adderall] 20 mg PO BID Discharge Medication List Horizant 600mg 1 tab PO DAILY@1700 01/18/21 [History] RX: Dextroamphetamine/Amphetamine [Adderall] 20 mg PO BID 01/18/21 [History] RX: Ergocalciferol [Vitamin D2 (1250 Mcg = 98070 Iu)] 1,250 mcg PO TU 01/18/21 [History] RX: Rizatriptan Odt [Maxalt CHIEF OF SERVICE] 10 mg PO DAILY PRN 01/18/21 [History] RX: medroxyPROGESTERone [Depo-Provera] 150 mg IM Q84D 01/18/21 [History] Follow up Appointment(s)/Referral(s): None,Stated [Primary Care Provider] - 1-2 days Edilberto Gonzales [STAFF PHYSICIAN] - 1 Week
[2021-01-19] MEDS: NON FORMULARY DRUG (Dextroamphetamine/Amphetamine [Adderall] 20 MG Tablet) PO SCH (11:02)
[2021-01-19 13:08] VITALS: BMI 18.1
== END 2021-01-19 12:32 | disposition home or self-care (01) ==
LOC: EC 12:43 → 6NMEDSUR 16:13
PROVIDERS: ADMIT Internal Medicine; ATTEND Internal Medicine
DX: K85.90 Acute pancreatitis without necrosis or infection, unspecified (principal); G89.4 Chronic pain syndrome; M79.7 Fibromyalgia; M06.9 Rheumatoid arthritis, unspecified; G43.909 Migraine, unspecified, not intractable, without status migrainosus; Z76.5 Malingerer [conscious simulation]; E05.90 Thyrotoxicosis, unspecified without thyrotoxic crisis or storm; F17.200 Nicotine dependence, unspecified, uncomplicated; Z20.822 Contact with and (suspected) exposure to COVID-19; Z90.49 Acquired absence of other specified parts of digestive tract; Z79.899 Other long term (current) drug therapy; Z79.890 Hormone replacement therapy; Z88.8 Allergy status to other drugs, medicaments and biological substances; Z82.0 Family history of epilepsy and other diseases of the nervous system; Z82.69 Family history of other diseases of the musculoskeletal system and connective tissue
CPT/HCPCS: 96376 ×2; 96375 ×2; 96361; 96374; 99285; 36415; 80053; 82150; 83690 ×2; 84478; 85025; 81003; 87635; 74018; 74177; G0378 ×2; J2405 ×2; J1885 ×2; C9113; J1170; Q9967

== ENCOUNTER 2021-10-05 21:03 | Emergency (ER) | payer OTHER, MEDICARE ==
[2021-10-05 21:10] VITALS: TEMP 97.9
[2021-10-05] MEDS ORDERED: HYDROcodone/APAP 5-325MG 1 EACH TAB PO STA (22:30)
[2021-10-05] MEDS ORDERED: ORPHENADRINE 30 MG/ML 2 ML VIAL IM STA (22:30)
[2021-10-05] MEDS ORDERED: KETOROLAC 15 MG/ML 1 ML VIAL IM STA (22:30)
[2021-10-05] MEDS ORDERED: ONDANSETRON ODT 4 MG TAB PO STA (22:31)
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
--- NOTE | 2021-10-05 23:11 | XR ---
EXAMINATION TYPE: XR ribs RT w pa chest xray DATE OF EXAM: 10/05/2021 COMPARISON: NONE HISTORY: Rib pain TECHNIQUE: 3 views FINDINGS: Heart and mediastinum are normal. Lungs are clear of infiltrate. No pleural effusion or pne umothorax. Right ribs appear intact. IMPRESSION: No rib fracture seen. No cardiopulmonary disease.
[2021-10-05] MEDS ORDERED: ACET/COD 300 MG/30 MG STARTER PACK 6 TAB BTL PO STA (23:55)
[2021-10-05] MEDS ORDERED: IBUPROFEN 600 MG STARTER PACK 4 TAB BTL PO STA (23:55)
[2021-10-06 00:16] VITALS: BP 128/77; PULSE 79; RESP 20
== END 2021-10-06 00:12 | disposition home or self-care (01) ==
LOC: SUPCPDRO 21:03 → EC 21:03
DX: S16.1XXA Strain of muscle, fascia and tendon at neck level, initial encounter (principal); S20.211A Contusion of right front wall of thorax, initial encounter; G44.209 Tension-type headache, unspecified, not intractable; F17.200 Nicotine dependence, unspecified, uncomplicated; Z88.6 Allergy status to analgesic agent; V89.2XXA Person injured in unspecified motor-vehicle accident, traffic, initial encounter
CPT/HCPCS: 93005; 71101; 72125; 70450; 99284; 96372; J2360; J1885

== ENCOUNTER 2022-08-04 12:02 | Emergency (ER) | payer MEDICARE, OTHER ==
--- NOTE | 2022-08-04 14:09 | XR ---
EXAMINATION TYPE: XR chest 2V DATE OF EXAM: 08/04/2022 2:04 PM COMPARISON: Chest radiographs from 10/05/2021 TECHNIQUE: XR chest 2V Frontal and lateral views of the chest. CLINICAL INDICATION:Female, 36 years old with history of Chest Pain; FINDINGS: Lungs/Pleura: There is no evidence of pleural effusion, focal consolidation, or pneumothorax. Pulmonary vascularity: Unremarkable. Heart/mediastinum: Cardiomediastinal silhouette is unremarkable. Musculoskeletal: No acute osseous pathology. Other findings: Cholecystectomy clips identified in the right upper quadrant. IMPRESSION: No acute cardiopulmonary disease/process.
[2022-08-04] MEDS ORDERED: ONDANSETRON 4 MG/2 ML VIAL IVP STA (14:13)
[2022-08-04] MEDS ORDERED: SODIUM CHLORIDE 0.9% 1,000 ML IV ONE (14:13)
[2022-08-04 14:16] LABS: Basophils # (A) 0.1 k/uL (0-0.2); Basophils % (A) 1 %; Eosinophils # (A) 0.1 k/uL (0-0.7); Eosinophils % (A) 1 %; HCT 44.5 % (34.0-46.0); HGB 14.8 gm/dL (11.4-16.0); Lymphocytes # (A) 1.4 k/uL (1.0-4.8); Lymphocytes % (A) 23 %; MCH 30.3 pg (25.0-35.0); MCHC 33.2 g/dL (31.0-37.0); MCV 91.3 fL (80.0-100.0); Mean Platelet Volume 7.7; Monocytes # (A) 0.2 k/uL (0-1.0); Monocytes % (A) 3 %; Neutrophils # (A) 4.4 k/uL (1.3-7.7); Neutrophils % (A) 70 %; Platelet Count 226 k/uL (150-450); RBC 4.88 m/uL (3.80-5.40); RDW 13.3 % (11.5-15.5); WBC 6.2 k/uL (3.8-10.6)
[2022-08-04 14:20] LABS: Appearance,Urine Cloudy (Clear); Bacteria,Urine Rare /hpf; Bilirubin,Urine Negative (Negative); Blood,Urine Moderate (Negative); Color,Urine Yellow; Glucose,Urine (UA) Negative (Negative); Ketones,Urine Negative (Negative); Leukocyte Esterase,Urine Negative (Negative); Mucus,Urine Rare /hpf; Nitrite,Urine Negative (Negative); PH, Urine 7.5 (5.0-8.0); Protein,Urine Negative (Negative); RBC,Urine 1 /hpf (0-5); Specific Gravity,Urine 1.015 (1.001-1.035); Squamous Epithelial Cell,Urine 6 /hpf (0-4); WBC,Urine 2 /hpf (0-5)
[2022-08-04 14:32] LABS: Partial Thromboplastin Time 25.1 sec (22.0-30.0); Prothrombin Time 10.3 sec (9.0-12.0)
[2022-08-04 14:34] LABS: ALT 22 U/L (4-34); AST 25 U/L (14-36); African American GFR (CKD) >90 (>60 ml/min/1.73 sqM); Albumin 4.6 g/dL (3.5-5.0); Alkaline Phosphatase 64 U/L (38-126); Anion Gap 8 mmol/L; Blood Urea Nitrogen 10 mg/dL (7-17); Calcium 9.3 mg/dL (8.4-10.2); Carbon Dioxide 30 mmol/L (22-30); Chloride 99 mmol/L (98-107); Glucose 91 mg/dL (74-99); Non-African American GFR(CKD) >90 (>60 ml/min/1.73 sqM); Potassium 3.7 mmol/L (3.5-5.1); Sodium 137 mmol/L (137-145); Total Bilirubin 0.8 mg/dL (0.2-1.3); Total Protein 7.4 g/dL (6.3-8.2)
--- NOTE | 2022-08-04 14:43 | CT ---
EXAMINATION TYPE: CT brain dunia wo con DATE OF EXAM: 08/04/2022 COMPARISON: 10/05/2021 HISTORY: 36-year-old female Right sided numbness, weakness. TECHNIQUE: CT of the head and neck without IV contrast. Coronal and sagittal reconstructions performe d. CT DLP: 1252.8 mGycm Automated exposure control for dose reduction was used. FINDINGS: Head: There is no evidence of acute intracranial hemorrhage, acute ischemic changes, mass, mass-effect, or extra-axial fluid collection. There is no effacement of cerebral sulci or basal subarachnoid cister ns. There is no hydrocephalus. There is no midline shift. Camejo-white matter distinction is preserv ed. Rightward nasal septal deviation. Paranasal sinuses and mastoid air cells are well pneumatized. Orbit s and globes are intact. Cervical spine: No craniocervical junction anomaly, predental space widening, or prevertebral soft tissue swelling. Reversal of the normal cervical lordosis but with preserved alignment. No acute fracture seen of the cervical spine. No evident canal compromise by CT. Sagittal and coronal reformatted images confirm above findings. COMBINED IMPRESSION: 1. No acute intracranial abnormality seen. 2. No acute fracture or malalignment of the cervical spine. Reversal of the normal cervical lordosis could be positional or due to muscle spasm.
--- NOTE | 2022-08-04 14:48 | ED ---
Chest Pain HPI - General Chief Complaint: Chest Pain Stated Complaint: chest pain Time Seen by Provider: 08/04/22 13:00 Source: patient Mode of arrival: ambulatory Limitations: no limitations - History of Present Illness Initial Comments: 36-year-old female with past medical history of fibromyalgia and rheumatoid arthritis who presents to the emergency room reporting chest pain. States that she had substernal chest pain while driving home from her Botox appointment. States that she gets Botox for chronic migraines. Pain was located substernally and made it hard for her to breathe. Also admits to some numbness and tingling in her right arm however this has been persistent over the past couple of weeks. She did see her egg buyer and neurologist because of her symptoms. States that she has an MRI ordered for September 18. She denies any head trauma. No fevers or chills. No visual changes. Denies previous history of cardiac disease. No lower extremity swelling. Denies concern for . No history of intravenous drug use. No other alleviating, precipitating or modifying factors - Related Data Home Medications Medication Instructions Recorded Confirmed Botox 200 Unit Solution 1 dose INTRADERMA Q84D 08/04/22 08/04/22 Dextroamphetamine/Amphetamine 30 mg PO BID@0900,1430 08/04/22 08/04/22 [Adderall] Escitalopram [Lexapro] 10 mg PO HS 08/04/22 08/04/22 Metoprolol Tartrate [Lopressor] 12.5 mg PO HS PRN 08/04/22 08/04/22 Metoprolol Tartrate [Lopressor] 25 mg PO DAILY 08/04/22 08/04/22 busPIRone HCL 7.5 mg PO BID 08/04/22 08/04/22 methIMAzole [Tapazole] 5 mg PO DAILY 08/04/22 08/04/22 Allergies Allergy/AdvReac Type Severity Reaction Status Date / Time baclofen Allergy Rash/Hives Verified 08/04/22 15:56 Review of Systems ROS Statement: Those systems with pertinent positive or pertinent negative responses have been documented in the HPI. ROS Other: All systems not noted in ROS Statement are negative. EKG Findings - EKG Comments: EKG Findings:: EKG demonstrates sinus tachycardia with a rate of 111. NC interval 147. QRS 83. QTC of 383. Right bundle branch block. No acute ST segment elevations or depressions Past Medical History Past Medical History: Fibromyalgia, Rheumatoid Arthritis (RA) Additional Past Medical History / Comment(s): DDD, migraines History of Any Multi-Drug Resistant Organisms: None Reported Past Surgical History: Section, Cholecystectomy, Tubal Ligation Additional Past Surgical History / Comment(s): D&C, Past Anesthesia/Blood Transfusion Reactions: Blood Transfusion Reaction Additional Past Anesthesia/Blood Transfusion Reaction / Comment(s): rash with blood product Past Psychological History: Anxiety, Depression Smoking Status: Current every day smoker Past Alcohol Use History: None Reported Past Drug Use History: Marijuana - Past Family History Father Additional Family Medical History / Comment(s): migraines Mother Additional Family Medical History / Comment(s): scoliosis General Exam Limitations: no limitations General appearance: alert, in no apparent distress Head exam: Present: atraumatic, normocephalic, normal inspection Eye exam: Present: normal appearance, PERRL, EOMI. Absent: scleral icterus, conjunctival injection, periorbital swelling ENT exam: Present: normal exam, mucous membranes moist Neck exam: Present: normal inspection. Absent: tenderness, meningismus, lymphadenopathy Respiratory exam: Present: normal lung sounds bilaterally. Absent: respiratory distress, wheezes, rales, rhonchi, stridor Cardiovascular Exam: Present: regular rate, normal rhythm, normal heart sounds. Absent: systolic murmur, diastolic murmur, rubs, gallop, clicks GI/Abdominal exam: Present: soft, normal bowel sounds. Absent: distended, tenderness, guarding, rebound, rigid Extremities exam: Present: normal inspection, full ROM, normal capillary refill. Absent: tenderness, pedal edema, joint swelling, calf tenderness Back exam: Present: normal inspection Neurological exam: Present: alert, oriented X3, CN II-XII intact Psychiatric exam: Present: normal affect, normal mood Skin exam: Present: warm, dry, intact, normal color. Absent: rash Course Vital Signs 08/04/22 08/04/22 08/04/22 12:05 14:14 16:12 Temperature 98.2 F 97.9 F Pulse Rate 74 78 77 Respiratory 18 16 14 Rate Blood Pressure 142/86 164/86 125/66 O2 Sat by Pulse 95 100 99 Oximetry Chest Pain MDM - MDM Was pt. sent in by a medical professional or institution (GWEN Brink, ADMISSIONS RECRUITER, urgent care, hospital, or retirement...) When possible be specific @ -No Did you speak to anyone other than the patient for history (EMS, parent, family, police, friend...)? What history was obtained from this source @ -No Did you review nursing and triage notes (agree or disagree)? Why? @ -I reviewed and agree with nursing and triage notes Were old charts reviewed (outside hosp., previous admission, EMS record, old EKG, old radiological studies, urgent care reports/EKG's, retirement records)? Report findings @ -No old charts are reviewed Differential Diagnosis (chest pain, altered mental status, abdominal pain women, abdominal pain men, vaginal bleeding, weakness, fever, dyspnea, syncope, headache, dizziness, GI bleed, back pain, seizure, CVA, palpatations, mental health, musculoskeletal)? @ -Differential Palpitations Ventricular arrhythmias, atrial arrhythmias, myocardial infarction, anemia, thyrotoxicosis, electrolyte imbalance, hypokalemia, pulmonary embolism, pulmonary disease, drugs, alcohol, anxiety, stress.... This is not meant to be an all-inclusive list. EKG interpreted by me (3pts min.). @ -EKG was interpreted by myself as a sinus tachycardia X-rays interpreted by me (1pt min.). @ -X-ray was interpreted by myself as negative for intrathoracic process CT interpreted by me (1pt min.). @ -CT of the brain was interpreted by myself as negative for intracranial process U/S interpreted by me (1pt. min.). @ -None done What testing was considered but not performed or refused? (CT, X-rays, U/S, labs)? Why? @ -None What meds were considered but not given or refused? Why? @ -None Did you discuss the management of the patient with other professionals (professionals i.e. GWEN Brink, ADMISSIONS RECRUITER, lab, RT, psych nurse, social insurance specialist, commercial lines account manager, teacher, geographic area intelligence officer, adult protective caseworker)? Give summary @ -No Was smoking cessation discussed for >3mins.? @ -No Was critical care preformed (if so, how long)? @ -No Were there social determinants of health that impacted care today? How? (Homelessness, low income, unemployed, alcoholism, drug addiction, transportation, low edu. Level, literacy, decrease access to med. care, longterm, rehab)? @ -No Was there de-escalation of care discussed even if they declined (Discuss DNR or withdrawal of care, Hospice)? DNR status @ -No What co-morbidities impacted this encounter? (DM, HTN, Smoking, COPD, CAD, Cancer, CVA, ARF, Chemo, Hep., AIDS, mental health diagnosis, sleep apnea, morbid obesity)? @ -Fibromyalgia Was patient admitted / discharged? Hospital course, mention meds given and route, prescriptions, significant lab abnormalities, going to OR and other pertinent info. @ -Upon arrival patient was placed into paul bed 19. Thorough history and physical exam was performed. IV is established and laboratory studies were conducted. Patient goes for a chest x-ray as well as a CT of her brain. Laboratory studies within normal limits. CT demonstrates no acute process. Results are discussed the patient. States that she needs to follow up with her neurologist and have the MRI obtained to evaluate for her right-sided paresthesias. Patient needs to follow up with her primary care doctor and have an echo and Holter monitor performed because of her chest pain. Requests that she return for any new or worsening symptoms. Patient agreeable to treatment plan and was discharged home in stable condition Undiagnosed new problem with uncertain prognosis? @ -Yes Drug Therapy requiring intensive monitoring for toxicity (Heparin, Nitro, Insulin, Cardizem)? @ -No Were any procedures done? @ -No Diagnosis/symptom? @ -Acute chest pain, acute palpitations, subacute right-sided paresthesias Acute, or Chronic, or Acute on Chronic? @ -Acute Uncomplicated (without systemic symptoms) or Complicated (systemic symptoms)? @ -Complicated Side effects of treatment? @ -No Exacerbation, Progression, or Severe Exacerbation? @ -No Poses a threat to life or bodily function? How? (Chest pain, [place], [place], pneumonia, PE, COPD, DKA, ARF, appy, cholecystitis, CVA, Diverticulitis, Homicidal, Suicidal, threat to staff... and all critical care pts) @ -No Disposition Clinical Impression: Chest pain, Arm paresthesia, right Disposition: HOME SELF-CARE Condition: Stable Instructions (If sedation given, give patient instructions): Chest Pain (ED) Additional Instructions: I recommend an echo and Holter monitoring. Have your primary care doctor order this. Return for any new or worsening symptoms Is patient prescribed a controlled substance at d/c from ED?: No Referrals: Kiet Stanley MD [Primary Care Provider] - 1-2 days Time of Disposition: 15:48
--- NOTE | 2022-08-04 14:49 | CT ---
EXAMINATION TYPE: CT angio head neck DATE OF EXAM: 08/04/2022 COMPARISON: CT brain same day HISTORY: 36-year-old female Right sided weakness, numbness. TECHNIQUE: Contiguous axial scanning of the head and neck performed with IV Contrast, patient injecte d with 100ml mL of Isovue 370. Coronal/sagittal reconstructions performed. 3-D reconstructions genera ilene on a dedicated independent workstation. CT DLP: 335.4 mGycm Automated exposure control for dose reduction was used. FINDINGS: NECK: Bilateral breast implants. Bovine configuration to the aortic arch. Codominant vertebral arteries, patent throughout their course. The right common and right internal carotid arteries are widely patent. The left common and left internal carotid arteries are widely patent. NASCET criteria was utilized. HEAD: The vertebral and basilar arteries as well as the remainder of the posterior circulation appears casiano nt. The bilateral internal carotid arteries and remainder of the anterior circulation appears patent. No aneurysmal change is identified. Dural venous sinuses are patent. IMPRESSION: 1. NECK: WIDELY PATENT VERTEBRAL AND CAROTID ARTERIES OF THE NECK. 2. HEAD: NO LARGE VESSEL INTRACRANIAL ARTERIAL OCCLUSION, SIGNIFICANT STENOSIS, OR ANEURYSMAL CHANGE IS SEEN.
[2022-08-04 16:16] VITALS: BP 125/66; PULSE 77; RESP 14; TEMP 97.9
== END 2022-08-04 16:16 | disposition home or self-care (01) ==
LOC: EC 12:02
DX: R07.89 Other chest pain (principal); R20.2 Paresthesia of skin; F41.9 Anxiety disorder, unspecified; F32.A Depression, unspecified; F17.200 Nicotine dependence, unspecified, uncomplicated; F12.90 Cannabis use, unspecified, uncomplicated; Z79.899 Other long term (current) drug therapy; Z88.6 Allergy status to analgesic agent
CPT/HCPCS: 36415; 93005; 85379; 80053; 84443; 83735; 84484; 85025; 85610; 85730; 81001; 71046; 72125; 70496; 70450; 70498; 99285; 96374; 96361; J2405; Q9967

== ENCOUNTER 2024-10-08 22:05 | Emergency (ER) | payer MEDICARE, OTHER ==
[2024-10-08] MEDS: SODIUM CHLORIDE 0.9% 1,000 ML IV STA (22:39)
[2024-10-08 22:43] LABS: Glucose,Whole Blood 96 mg/dL (70-110)
[2024-10-08] MEDS: LORazepam 1 MG/0.5 ML VIAL IV STA (22:43)
[2024-10-08] MEDS: NALOXONE 0.4 MG/ML 1 ML VIAL IVP STA (22:49)
[2024-10-08 22:57] LABS: Basophils # (A) 0.05 10*3/uL (0.00-0.10); Basophils % (A) 0.8 %; Eosinophils # (A) 0.12 10*3/uL (0.04-0.35); Eosinophils % (A) 2.0 %; HCT 35.7 % (37.2-46.3); HGB 12.1 g/dL (12.0-15.0); Lymphocytes # (A) 1.55 10*3/uL (0.90-5.00); Lymphocytes % (A) 25.7 %; MCH 29.2 pg (27.0-32.0); MCHC 33.9 g/dL (32.0-37.0); MCV 86.0 fL (80.0-97.0); Monocytes # (A) 0.32 10*3/uL (0.20-1.00); Monocytes % (A) 5.3 %; Neutrophils # (A) 3.99 10*3/uL (1.80-7.70); Neutrophils % (A) 66.0 %; Platelet Count 259 10*3/uL (140-440); RBC 4.15 10*6/uL (4.10-5.20); RDW 13.2 % (11.5-14.5); WBC 6.04 10*3/uL (4.50-10.00)
--- NOTE | 2024-10-08 23:01 | ED ---
Altered Mental Status HPI - General Chief Complaint: Seizure Stated Complaint: Seizure, hypertension Time Seen by Provider: 10/08/24 22:29 Source: patient, RN notes reviewed Mode of arrival: wheelchair Limitations: no limitations - History of Present Illness Initial Comments: This is a 39-year-old female who presents to the emergency department for seizu re-like activity. Patient states that she had a tax intern at her house today and she started to have seizures and was then transported to [facility]. States that at [place] they gave her 2 doses of Narcan and sent her home. However, states that she is unsure why as she does not do drugs. States that she still does not feel right, prompting her to bring herself here for further evaluation. She does report a history of seizures that have been ongoing over the last couple of years. She has also been on antiseizure medications in the past but was then later told by a neurologist to stop it and is not currently taking anything for seizures. States that she had seizures yesterday and prior to yesterday had one about 6 months ago. Currently complains of a headache and some nausea. States that she was given a referral to neurology and has an appointment either tomorrow or the following day. MD Complaint: altered mental status, confusion, decreased responsiveness - Related Data Home Medications Medication Instructions Recorded Confirmed Botox 200 Unit Solution 1 dose INTRADERMA Q84D 08/04/22 08/04/22 Dextroamphetamine/Amphetamine 30 mg PO BID@0900,1430 08/04/22 08/04/22 [Adderall] Escitalopram [Lexapro] 10 mg PO HS 08/04/22 08/04/22 Metoprolol Tartrate [Lopressor] 12.5 mg PO HS PRN 08/04/22 08/04/22 Metoprolol Tartrate [Lopressor] 25 mg PO DAILY 08/04/22 08/04/22 busPIRone HCL 7.5 mg PO BID 08/04/22 08/04/22 methIMAzole [Tapazole] 5 mg PO DAILY 08/04/22 08/04/22 Previous Rx's Medication Instructions Recorded Ondansetron Odt [Zofran Odt] 4 mg PO Q8HR PRN #15 tab 10/09/24 Allergies Allergy/AdvReac Type Severity Reaction Status Date / Time baclofen Allergy Rash/Hives Verified 08/04/22 15:56 piperacillin [From Zosyn] Allergy Unknown Verified 10/08/24 22:18 tazobactam [From Zosyn] Allergy Unknown Verified 10/08/24 22:18 Penicillins AdvReac Unknown Verified 10/08/24 22:18 Review of Systems ROS Statement: Those systems with pertinent positive or pertinent negative responses have been documented in the HPI. ROS Other: All systems not noted in ROS Statement are negative. Past Medical History Past Medical History: Fibromyalgia, Pneumonia, Rheumatoid Arthritis (RA) Additional Past Medical History / Comment(s): migraines History of Any Multi-Drug Resistant Organisms: None Reported Past Surgical History: Section, Cholecystectomy, Tubal Ligation Additional Past Surgical History / Comment(s): D&C, Past Anesthesia/Blood Transfusion Reactions: Blood Transfusion Reaction Additional Past Anesthesia/Blood Transfusion Reaction / Comment(s): rash with blood product Past Psychological History: Anxiety, Depression Smoking Status: Former smoker, Vaper Past Alcohol Use History: None Reported Past Drug Use History: Marijuana - Past Family History Father Additional Family Medical History / Comment(s): migraines Mother Additional Family Medical History / Comment(s): scoliosis General Exam Limitations: no limitations General appearance: alert, in no apparent distress Head exam: Present: atraumatic, normocephalic, normal inspection Respiratory exam: Present: normal lung sounds bilaterally. Absent: respiratory distress, wheezes, rales, rhonchi, stridor Cardiovascular Exam: Present: regular rate, normal rhythm Neurological exam: Present: alert, oriented X3, CN II-XII intact Psychiatric exam: Present: normal affect, normal mood Skin exam: Present: warm, dry, intact, normal color. Absent: rash Course Vital Signs 10/08/24 10/08/24 10/08/24 22:18 22:42 22:49 Temperature 97.9 F Pulse Rate 107 H 92 Respiratory 16 17 16 Rate Blood Pressure 131/83 143/97 O2 Sat by Pulse 100 100 Oximetry 10/09/24 10/09/24 10/09/24 00:50 02:29 03:13 Temperature 97.7 F Pulse Rate 80 75 52 L Respiratory 17 16 16 Rate Blood Pressure 112/67 112/67 O2 Sat by Pulse 99 100 Oximetry Medical Decision Making - Medical Decision Making This is a 39-year-old female who presents to the emergency department for altered mental status or seizure-like activity. Was pt. sent in by a medical professional or institution? @ -No Did you speak to anyone other than the patient for history? @ -No Did you review nursing and triage notes? @ -Yes, and I agree, it is accurate with regards to the patient's symptoms. Were old charts reviewed? @ -No Differential Diagnosis? @ -Differential Altered Mental Status: Hypoglycemia, DKA, hypercapnia, ETOH, overdose, CO poisoning, trauma, myxedema coma, HTN encephalopathy, infection, encephalitis, psychosis, intercranial hemorrhage, hepatic encephalopathy, meningitis, CVA, this is not meant to be an all-inclusive list EKG interpreted by me (3pts min.)? @ -EKG interpreted by me demonstrating the following: Sinus rhythm. Ventricular rate 92 bpm, ND interval 172 ms, QRS duration 83 ms, QTc 389 ms. X-rays interpreted by me (1pt min.)? @ -Not obtained CT interpreted by me (1pt min.)? @ -CT scan of the brain obtained. My interpretation identifies no acute intracranial hemorrhage. U/S interpreted by me (1pt. min.)? @ -Not obtained What testing was considered but not performed? (CT, X-rays, U/S, labs)? Why? @ -None What meds were considered but not given? Why? @ -None Did you discuss the management of the patient with other professionals? @ -No Did you reconcile home meds? @ -No Was smoking cessation discussed for >3mins.? @ -I discussed smoking cessation for greater than 3 minutes. The risk of smoking were discussed with the patient including but not limited to risks of cancer, stroke, coronary artery disease and COPD. Also discussed with patient were multiple methods of quitting smoking. Lastly we discussed the financial cost of smoking. Was critical care preformed (if so, how long)? @ -No Were there social determinants of health that impacted care today? How? (Homelessness, low income, unemployed, alcoholism, drug addiction, transpo rtation, low edu. Level, literacy, decrease access to med. care, fpc, rehab)? @ -No Was there de-escalation of care discussed even if they declined? (Discuss DNR or withdrawal of care, Hospice)? @ -No What co-morbidities impacted this encounter? (DM, HTN, Smoking, COPD, CAD, Cancer, CVA, Hep., AIDS, mental health diagnosis, sleep apnea, morbid obesity)? @ -Smoking, fibromyalgia Was patient admitted / discharged? @ -Discharged. On arrival patient appeared to be exhibiting seizure-like activity. She was laying in the bed with her eyes moving [id number] and not responding to verbal commands. However, she came right out of this with any kind of painful stimuli suggesting this to be more so pseudoseizure activity. This would also make sense as to why her previous neurologist told her to stop taking her antiseizure medication. Laboratory studies unremarkable. There was no elevation in lactic acid or CK like would be expected with recurrent seizures. CT scan of the brain obtained also revealing no acute findings. UDS positive for amphetamines, marijuana, and benzodiazepines. Patient's headache and nausea were treated in the emergency department. Zofran prescribed for any additional nausea. Advised she otherwise follow-up with her neurologist as scheduled in the next 1 to 2 days. Patient discharged home in stable condition. Case discussed with ED attending Dr. Lopez. Return precautions reviewed in depth, the patient is instructed to return to the emergency department with any new, worsening, or concerning symptoms. Patient verbalized understanding. Undiagnosed new problem with uncertain prognosis? @ -None Drug Therapy requiring intensive monitoring for toxicity (Heparin, Nitro, Insulin, Cardizem)? @ -None Were any procedures done? @ -None Diagnosis/symptom? @ -Psychogenic nonepileptic seizure, headache, nausea Acute, or Chronic, or Acute on Chronic? @ -Acute Uncomplicated (without systemic symptoms) or Complicated (systemic symptoms)? @ -Uncomplicated Side effects of treatment? @ -None Exacerbation, Progression, or Severe Exacerbation] @ -Not applicable Poses a threat to life or bodily function? @ -No - Lab Data Result diagrams: 10/08/24 22:41 10/08/24 22:41 Lab Results 10/08/24 10/08/24 10/08/24 Range/Units 22:41 22:41 22:41 WBC 6.04 (4.50-10.00) 10*3/uL RBC 4.15 (4.10-5.20) 10*6/uL Hgb 12.1 (12.0-15.0) g/dL Hct 35.7 L (37.2-46.3) % MCV 86.0 (80.0-97.0) fL MCH 29.2 (27.0-32.0) pg MCHC 33.9 (32.0-37.0) g/dL Plt Count 259 (140-440) 10*3/uL MPV 9.6 (9.5-12.2) fL Immature Gran % (Auto) 0.2 % Neutrophils % 66.0 % Lymphocytes % 25.7 % Monocytes % 5.3 % Eosinophils % 2.0 % Basophils % 0.8 % Immature Gran # 0.01 (0.00-0.04) 10*3/uL Neutrophils # 3.99 (1.80-7.70) 10*3/uL Lymphocytes # 1.55 (0.90-5.00) 10*3/uL Monocytes # 0.32 (0.20-1.00) 10*3/uL Eosinophils # 0.12 (0.04-0.35) 10*3/uL Basophils # 0.05 (0.00-0.10) 10*3/uL Sodium 132 L (137-145) mmol/L Potassium 3.8 (3.5-5.1) mmol/L Chloride 99 (98-107) mmol/L Carbon Dioxide 21 L (22-30) mmol/L Anion Gap 12 mmol/L BUN 7 (7-17) mg/dL Creatinine 0.68 (0.52-1.04) mg/dL Est GFR (CKD-EPI)AfAm >90 (>60 ml/min/1.73 sqM) Est GFR (CKD-EPI)NonAf >90 (>60 ml/min/1.73 sqM) Glucose 96 (74-99) mg/dL POC Glucose (mg/dL) (70-110) mg/dL POC Glu [employer] ID Plasma Lactic Acid Jeovany 1.0 (0.7-2.0) mmol/L Calcium 9.7 (8.4-10.2) mg/dL Magnesium 1.7 (1.6-2.3) mg/dL Total Bilirubin 0.7 (0.2-1.3) mg/dL AST 27 (14-36) U/L ALT 29 (4-34) U/L Alkaline Phosphatase 80 (38-126) U/L Creatine Kinase 46 (30-135) U/L Troponin I (0.000-0.034) ng/mL Total Protein 6.8 (6.3-8.2) g/dL Albumin 4.3 (3.5-5.0) g/dL Urine Color Urine Appearance (Clear) Urine pH (5.0-8.0) Ur Specific [place] (1.001-1.035) Urine Protein (Negative) Urine Glucose (UA) (Negative) Urine Ketones (Negative) Urine Blood (Negative) Urine Nitrite (Negative) Urine Bilirubin (Negative) Urine Urobilinogen (<2.0) mg/dL Ur Leukocyte Esterase (Negative) Urine WBC (0-5) /hpf Ur Squamous Epith Cells (0-4) /hpf Urine Bacteria (None) /hpf Urine HCG, Qual (Not Detectd) Urine Opiates Screen (NotDetected) Ur Oxycodone Screen (NotDetected) Urine Methadone Screen (NotDetected) Ur Barbiturates Screen (NotDetected) U Tricyclic Antidepress (NotDetected) Ur Phencyclidine Scrn (NotDetected) Ur Amphetamines Screen (NotDetected) U Methamphetamines Scrn (NotDetected) U Benzodiazepines Scrn (NotDetected) Urine Cocaine Screen (NotDetected) U Marijuana (THC) Screen (NotDetected) Serum Alcohol <10 mg/dL 10/08/24 10/08/24 10/09/24 Range/Units 22:42 22:43 00:40 WBC (4.50-10.00) 10*3/uL RBC (4.10-5.20) 10*6/uL Hgb (12.0-15.0) g/dL Hct (37.2-46.3) % MCV (80.0-97.0) fL MCH (27.0-32.0) pg MCHC (32.0-37.0) g/dL Plt Count (140-440) 10*3/uL MPV (9.5-12.2) fL Immature Gran % (Auto) % Neutrophils % % Lymphocytes % % Monocytes % % Eosinophils % % Basophils % % Immature Gran # (0.00-0.04) 10*3/uL Neutrophils # (1.80-7.70) 10*3/uL Lymphocytes # (0.90-5.00) 10*3/uL Monocytes # (0.20-1.00) 10*3/uL Eosinophils # (0.04-0.35) 10*3/uL Basophils # (0.00-0.10) 10*3/uL Sodium (137-145) mmol/L Potassium (3.5-5.1) mmol/L Chloride (98-107) mmol/L Carbon Dioxide (22-30) mmol/L Anion Gap mmol/L BUN (7-17) mg/dL Creatinine (0.52-1.04) mg/dL Est GFR (CKD-EPI)AfAm (>60 ml/min/1.73 sqM) Est GFR (CKD-EPI)NonAf (>60 ml/min/1.73 sqM) Glucose (74-99) mg/dL POC Glucose (mg/dL) 96 (70-110) mg/dL POC Glu [employer] ID David Petit Plasma Lactic Acid Jeovany (0.7-2.0) mmol/L Calcium (8.4-10.2) mg/dL Magnesium (1.6-2.3) mg/dL Total Bilirubin (0.2-1.3) mg/dL AST (14-36) U/L ALT (4-34) U/L Alkaline Phosphatase (38-126) U/L Creatine Kinase (30-135) U/L Troponin I <0.012 (0.000-0.034) ng/mL Total Protein (6.3-8.2) g/dL Albumin (3.5-5.0) g/dL Urine Color Urine Appearance (Clear) Urine pH (5.0-8.0) Ur Specific [place] (1.001-1.035) Urine Protein (Negative) Urine Glucose (UA) (Negative) Urine Ketones (Negative) Urine Blood (Negative) Urine Nitrite (Negative) Urine Bilirubin (Negative) Urine Urobilinogen (<2.0) mg/dL Ur Leukocyte Esterase (Negative) Urine WBC (0-5) /hpf Ur Squamous Epith Cells (0-4) /hpf Urine Bacteria (None) /hpf Urine HCG, Qual (Not Detectd) Urine Opiates Screen Not Detected (NotDetected) Ur Oxycodone Screen Not Detected (NotDetected) Urine Methadone Screen Not Detected (NotDetected) Ur Barbiturates Screen Not Detected (NotDetected) U Tricyclic Antidepress Not Detected (NotDetected) Ur Phencyclidine Scrn Not Detected (NotDetected) Ur Amphetamines Screen Detected H (NotDetected) U Methamphetamines Scrn Not Detected (NotDetected) U Benzodiazepines Scrn Detected H (NotDetected) Urine Cocaine Screen Not Detected (NotDetected) U Marijuana (THC) Screen Detected H (NotDetected) Serum Alcohol mg/dL 10/09/24 10/09/24 Range/Units 00:40 00:40 WBC (4.50-10.00) 10*3/uL RBC (4.10-5.20) 10*6/uL Hgb (12.0-15.0) g/dL Hct (37.2-46.3) % MCV (80.0-97.0) fL MCH (27.0-32.0) pg MCHC (32.0-37.0) g/dL Plt Count (140-440) 10*3/uL MPV (9.5-12.2) fL Immature Gran % (Auto) % Neutrophils % % Lymphocytes % % Monocytes % % Eosinophils % % Basophils % % Immature Gran # (0.00-0.04) 10*3/uL Neutrophils # (1.80-7.70) 10*3/uL Lymphocytes # (0.90-5.00) 10*3/uL Monocytes # (0.20-1.00) 10*3/uL Eosinophils # (0.04-0.35) 10*3/uL Basophils # (0.00-0.10) 10*3/uL Sodium (137-145) mmol/L Potassium (3.5-5.1) mmol/L Chloride (98-107) mmol/L Carbon Dioxide (22-30) mmol/L Anion Gap mmol/L BUN (7-17) mg/dL Creatinine (0.52-1.04) mg/dL Est GFR (CKD-EPI)AfAm (>60 ml/min/1.73 sqM) Est GFR (CKD-EPI)NonAf (>60 ml/min/1.73 sqM) Glucose (74-99) mg/dL POC Glucose (mg/dL) (70-110) mg/dL POC Glu [employer] ID Plasma Lactic Acid Jeovany (0.7-2.0) mmol/L Calcium (8.4-10.2) mg/dL Magnesium (1.6-2.3) mg/dL Total Bilirubin (0.2-1.3) mg/dL AST (14-36) U/L ALT (4-34) U/L Alkaline Phosphatase (38-126) U/L Creatine Kinase (30-135) U/L Troponin I (0.000-0.034) ng/mL Total Protein (6.3-8.2) g/dL Albumin (3.5-5.0) g/dL Urine Color Colorless Urine Appearance Clear (Clear) Urine pH 5.5 (5.0-8.0) Ur Specific [place] 1.002 (1.001-1.035) Urine Protein Negative (Negative) Urine Glucose (UA) Negative (Negative) Urine Ketones Negative (Negative) Urine Blood Small H (Negative) Urine Nitrite Negative (Negative) Urine Bilirubin Negative (Negative) Urine Urobilinogen <2.0 (<2.0) mg/dL Ur Leukocyte Esterase Negative (Negative) Urine WBC <1 (0-5) /hpf Ur Squamous Epith Cells 1 (0-4) /hpf Urine Bacteria Rare H (None) /hpf Urine HCG, Qual Not Detected (Not Detectd) Urine Opiates Screen (NotDetected) Ur Oxycodone Screen (NotDetected) Urine Methadone Screen (NotDetected) Ur Barbiturates Screen (NotDetected) U Tricyclic Antidepress (NotDetected) Ur Phencyclidine Scrn (NotDetected) Ur Amphetamines Screen (NotDetected) U Methamphetamines Scrn (NotDetected) U Benzodiazepines Scrn (NotDetected) Urine Cocaine Screen (NotDetected) U Marijuana (THC) Screen (NotDetected) Serum Alcohol mg/dL - Radiology Data Radiology results: report reviewed, image reviewed Disposition Clinical Impression: Headache, Nausea, Nicotine dependence, Psychogenic nonepileptic seizure Disposition: HOME SELF-CARE Additional Instructions: Return to the emergency department with any new, worsening, or concerning symptoms. Alternate with ibuprofen and Tylenol as needed for any additional headaches. You can take the Zofran up to every 8 hours as needed for nausea and vomiting. Follow-up with your neurologist and primary care provider. Prescriptions: Ondansetron Odt [Zofran Odt] 4 mg PO Q8HR PRN #15 tab PRN Reason: Nausea And Vomiting Is patient prescribed a controlled substance at d/c from ED?: No Referrals: None,Stated [Primary Care Provider] - 1-2 days Time of Disposition: 02:45
--- NOTE | 2024-10-08 23:31 | CT ---
EXAM: CT Head Without Intravenous Contrast CLINICAL HISTORY: ITS.REASON CT Reason: seizure activity TECHNIQUE: Axial computed tomography images of the head/brain without intravenous contrast. CTDI is 49.1 mGy and DLP is 1274.4 mGy-cm. This CT exam was performed using one or more of the following dose reduction techniques: automated exposure control, adjustment of the mA and/or kV according to patient size, and/or use of iterative reconstruction technique. COMPARISON: No relevant prior studies available. FINDINGS: No acute intracranial hemorrhage. No midline shift or mass effect. The territorial thornton-white matter differentiation is maintained throughout. The ventricles and sulci are commensurate with age. The visualized orbits appear grossly unremarkable. The calvarium is intact. The visualized paranasal sinuses and mastoid air cells are grossly clear. IMPRESSION: No acute intracranial hemorrhage, midline shift, or mass effect.
[2024-10-08 23:34] LABS: ALT 29 U/L (4-34); AST 27 U/L (14-36); African American GFR (CKD) >90 (>60 ml/min/1.73 sqM); Albumin 4.3 g/dL (3.5-5.0); Alkaline Phosphatase 80 U/L (38-126); Anion Gap 12 mmol/L; Blood Urea Nitrogen 7 mg/dL (7-17); Calcium 9.7 mg/dL (8.4-10.2); Carbon Dioxide 21 mmol/L (22-30); Chloride 99 mmol/L (98-107); Creatine Kinase 46 U/L (30-135); Glucose 96 mg/dL (74-99); Magnesium 1.7 mg/dL (1.6-2.3); Non-African American GFR(CKD) >90 (>60 ml/min/1.73 sqM); Potassium 3.8 mmol/L (3.5-5.1); Sodium 132 mmol/L (137-145); Total Protein 6.8 g/dL (6.3-8.2)
[2024-10-09] MEDS: ACETAMINOPHEN TAB 500 MG TAB PO STA (00:39)
[2024-10-09] MEDS: KETOROLAC 15 MG/ML 1 ML VIAL IVP STA (00:42)
[2024-10-09] MEDS: ONDANSETRON 4 MG/2 ML VIAL IVP STA (00:46)
[2024-10-09 01:15] LABS: Bacteria,Urine Rare /hpf; Bilirubin,Urine Negative (Negative); Blood,Urine Small (Negative); Color,Urine Colorless; Glucose,Urine (UA) Negative (Negative); Ketones,Urine Negative (Negative); Leukocyte Esterase,Urine Negative (Negative); Nitrite,Urine Negative (Negative); PH, Urine 5.5 (5.0-8.0); Protein,Urine Negative (Negative); Specific Gravity,Urine 1.002 (1.001-1.035); Squamous Epithelial Cell,Urine 1 /hpf (0-4); Urobilinogen,Urine <2.0 mg/dL (<2.0); WBC,Urine <1 /hpf (0-5)
[2024-10-09 01:25] LABS: Phencyclidine Screen,Urine Not Detected (NotDetected)
[2024-10-09 01:26] LABS: Barbiturate Screen,Urine Not Detected (NotDetected); Benzodiazepines Screen,Urine Detected (NotDetected); Opiate Screen,Urine Not Detected (NotDetected); Oxycodone Screen, Urine Not Detected (NotDetected); Tricyclic Antidepressant,Urine Not Detected (NotDetected); Urn Cannabinoid Scrn Detected (NotDetected)
[2024-10-09 02:30] VITALS: BP 112/67; RESP 16
[2024-10-09] MEDS: METOCLOPRAMIDE 5 MG/ML 2 ML VIAL IVP STA (02:30)
[2024-10-09] MEDS: ONDANSETRON 4 MG ODT STARTER PACK TAB BTL PO STA (03:01)
[2024-10-09 03:14] VITALS: PULSE 52; TEMP 97.7
== END 2024-10-09 03:14 | disposition home or self-care (01) ==
LOC: EC 22:05
DX: F44.5 Conversion disorder with seizures or convulsions (principal); F45.9 Somatoform disorder, unspecified; R51.9 Headache, unspecified; R11.0 Nausea; M79.7 Fibromyalgia; F17.290 Nicotine dependence, other tobacco product, uncomplicated; Z88.0 Allergy status to penicillin; Z88.8 Allergy status to other drugs, medicaments and biological substances
CPT/HCPCS: 36415; 80053; 82550; 83605; 83735; 84484; 85025; 81001; 81025; 80306; 70450; 99285; 96374; 96375 ×2; 96361; G0480; J2060; J2405; J1885; S0119; J2312; 80320